=== PATIENT | female | born 1995 | race Caucasian/White ===

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

== ENCOUNTER 2021-02-06 16:48 | Emergency (ER) | payer MEDICAID ==
[~2021-02-06] VITALS: Ht 165.1 cm; Wt 63.6 kg
[~2021-02-06 16:48] MED LIST: MIRT-89 PO
[2021-02-06] MEDS ORDERED: ACETAMINOPHEN 500 MG TABLET PO ONE (19:45)
[2021-02-06] MEDS ORDERED: BACITRACIN 0.9 GM PACKET OINTMENT TP ONE (19:45)
[2021-02-06] MEDS ORDERED: PERTUSS(ACELL),DIPH,TET VAC/PF 0.5 ML SYRINGE IM. ONE (19:45)
[2021-02-06 19:57] VITALS: BP 132/76
== END 2021-02-06 21:52 | disposition home or self-care (01) ==
LOC: EMS 16:48
DX: S01.311A Laceration without foreign body of right ear, initial encounter (principal); S02.2XXA Fracture of nasal bones, initial encounter for closed fracture; F17.210 Nicotine dependence, cigarettes, uncomplicated; F12.90 Cannabis use, unspecified, uncomplicated; Y04.0XXA Assault by unarmed brawl or fight, initial encounter; Y93.89 Activity, other specified; Y92.89 Other specified places as the place of occurrence of the external cause; Y99.8 Other external cause status
CPT/HCPCS: 12011; 70450; 70486; 72125; 90471; 90715; 99285

== ENCOUNTER 2021-02-21 18:19 | Emergency (ER) | payer MEDICAID ==
[~2021-02-21] VITALS: Ht 165.1 cm; Wt 63.6 kg
[2021-02-21 18:20] VITALS: BP 113/72
[2021-02-21] MEDS ORDERED: CEPHALEXIN MONOHYDRATE 500 MG CAPSULE PO ONE (21:15)
== END 2021-02-21 21:40 | disposition home or self-care (01) ==
LOC: EMS 18:21
DX: J32.9 Chronic sinusitis, unspecified (principal); F17.210 Nicotine dependence, cigarettes, uncomplicated; Z79.899 Other long term (current) drug therapy
CPT/HCPCS: 99283

== ENCOUNTER 2022-07-07 22:47 | Inpatient (IN) | payer MEDICAID ==
[~2022-07-07] VITALS: Ht 165.1 cm; Wt 67.0 kg
[2022-07-08 00:16] LABS: MEAN CORPUSCULAR HGB CONC 34.1 G/dL (31.0-37.0)
[2022-07-08 00:27] LABS: APPEARANCE,URINE HAZY (CLEAR); GLUCOSE, URINE (UA) NEGATIVE (NEGATIVE); KETONES,URINE =>150 mg/dL (NEGATIVE); LEUKOCYTE ESTERASE ,URINE MODERATE (NEGATIVE); NITRATE,URINE NEGATIVE (NEGATIVE); OCCULT BLOOD,URINE LARGE (NEGATIVE); PH,URINE 5.5 (5.0-8.0); PROTEIN,URINE 100-200,SEE CONFIRM mg/dL (NEGATIVE); SPECIFIC GRAVITIY, URINE 1.039 (1.003-1.030)
[2022-07-08 00:31] LABS: BILIRUBIN,URINE SMALL (NEGATIVE)
[2022-07-08 00:31] LABS: BASOPHILS % (AUTO) 0.4 % (0.0-2.0); EOSINOPHILS % (AUTO) 0.2 % (1.0-6.0); LYMPHOCYTES # (AUTO) 2.6 K/uL (1.0-4.8); MEAN CORPUSCULAR HEMOGLOBIN 29.6 pg (26.0-34.0); MEAN CORPUSCULAR VOLUME 87 fL (80-100); MONOCYTES # (AUTO) 1.2 K/uL (0.1-1.0); MONOCYTES % (AUTO) 7.8 % (2.0-9.0); NEUTROPHILS # (AUTO) 11.6 K/uL (1.8-7.7); NEUTROPHILS % (AUTO) 74.6 % (40.0-70.0); PLATELET COUNT (AUTO) 365 K/uL (150-450); RED BLOOD CELL COUNT(AUTO) 4.72 MIL/uL (4.00-5.20); RED CELL DISTRIBUTION WIDTH 13.2 % (11.5-14.5)
[2022-07-08 00:32] LABS: ALANINE AMINOTRANSFERASE 26 U/L (12-78); ALBUMIN 5.1 g/dL (3.4-5.0); ALKALINE PHOSPHATASE 110 U/L (46-116); ANION GAP 16 mmol/L (8-16); ASPARTATE AMINOTRANSFERASE 40 U/L (15-37); BILIRUBIN,TOTAL 2.4 mg/dL (0.1-1.0); CALCIUM, TOTAL 9.6 mg/dL (8.8-10.5); CARBON DIOXIDE 22 mmol/L (22-29); CHLORIDE 101 mmol/L (98-107); GLUCOSE,RANDOM 95 mg/dL (70-110); SODIUM SERUM 139 mmol/L (136-145); UREA NITROGEN, BLOOD 18 mg/dL (7-18)
[2022-07-08 00:35] LABS: AMPHET/METH SCREEN,URINE POSITIVE (NEGATIVE); BARBITURATE SCREEN, URINE NEGATIVE (NEGATIVE); BENZODIAZEPINES SCREEN,URINE NEGATIVE (NEGATIVE); CANNABINOID SCREEN,URINE POSITIVE (NEGATIVE); COCAINE SCREEN,URINE POSITIVE (NEGATIVE); METHADONE SCREEN, URINE NEGATIVE (NEGATIVE); OPIATE SCREEN,URINE NEGATIVE (NEGATIVE)
[2022-07-08 00:39] LABS: PHENCYCLIDINE SCREEN,URINE NEGATIVE (NEGATIVE)
[2022-07-08 00:41] LABS: GLOMERULAR FILTR. RATE CALC > 60 mL/min (>60)
[2022-07-08 00:42] LABS: POTASSIUM 2.9 mmol/L (3.5-5.1)
[2022-07-08] MEDS ORDERED: POTASSIUM CHLORIDE 20 MEQ ER TABLET PO ONE (00:45)
[2022-07-08 01:00] LABS: SULFOSALICYLIC ACID,URINE 1+ (Negative)
[2022-07-08] MEDS ORDERED: DiphenhydrAMINE HCL 50 MG/ML VIAL IM ONE (01:00)
[2022-07-08] MEDS ORDERED: LORazepam 2 MG/ML VIAL IM ONE (01:00)
[2022-07-08] MEDS ORDERED: HALOPERIDOL LACTATE 5 MG/ML VIAL IM ONE (01:00)
[2022-07-08 01:01] LABS: BACTERIA,URINE Few /HPF (None Seen); SQUAMOUS EPITHELIAL CELL,UR Few /LPF (None Seen)
[2022-07-08] MEDS ORDERED: OLANZapine 5 MG RAPDIS TABLET PO PRN (03:30)
[2022-07-08] MEDS ORDERED: LORazepam 2 MG TABLET PO PRN (03:30)
[2022-07-08] MEDS ORDERED: ZOLPIDEM TARTRATE 10 MG TABLET PO PRN (03:30)
[2022-07-08 10:43] VITALS: BP 113/65
[2022-07-08] MEDS: NITROFURANTOIN MONOHYD/M-CRYST 100 MG CAPSULE [MACROBID] PO SCH ×2 (10:45→16:53)
[2022-07-08] MEDS ORDERED: ACETAMINOPHEN 325 MG TABLET PO PRN (16:30)
[2022-07-08] MEDS ORDERED: HydrOXYzine PAMOATE 50 MG CAPSULE PO PRN (16:30)
[2022-07-08] MEDS ORDERED: MAG HYDROX/AL HYDROX/SIMETH ES 30 ML SUSPENSION UDCUP PO PRN (16:30)
[2022-07-08] MEDS ORDERED: PROMETHAZINE HCL 25 MG TABLET PO PRN (16:30)
[2022-07-08] MEDS ORDERED: MAGNESIUM HYDROXIDE SUSPENSION 30 ML UDCUP PO PRN (16:30)
[2022-07-08] MEDS ORDERED: TUBERCULIN, PURIFIED PROTEIN DERIVATIVE 5 TU/0.1 ML SYRINGE ID ONE (16:30)
[2022-07-08] MEDS ORDERED: GuaiFENesin/D-METHORPHAN [SUGAR-FREE] 200-20MG/10 ML SYRUP UDCUP PO PRN (16:30)
[2022-07-08] MEDS ORDERED: LOPERAMIDE HCL 2 MG CAPSULE PO PRN (16:30)
[2022-07-08] MEDS: THIAMINE 100 MG TABLET PO SCH (16:54)
[2022-07-08] MEDS: OLANZapine 5 MG RAPDIS TABLET PO SCH (20:43)
[2022-07-08] MEDS: MELATONIN 5 MG TABLET PO SCH (20:44)
[2022-07-09 07:21] LABS: COVID AG,FIA SOURCE NASAL SWAB
[2022-07-09] MEDS: OMEGA-3/DHA/EPA/FISH OIL 1,000 MG CAPSULE PO SCH (08:42)
[2022-07-09] MEDS: THIAMINE 100 MG TABLET PO SCH ×2 (08:42→16:15)
[2022-07-09] MEDS: FOLIC ACID 1 MG TABLET PO SCH (08:42)
[2022-07-09] MEDS: NALTREXONE HCL 50 MG TABLET PO SCH (08:42)
[2022-07-09] MEDS: NITROFURANTOIN MONOHYD/M-CRYST 100 MG CAPSULE [MACROBID] PO SCH ×2 (08:42→16:15)
[2022-07-09] MEDS: MULTIVITAMINS WITH MINERALS, THERAPEUTIC TABLET PO SCH (08:42)
[2022-07-09 08:43] LABS: ANION GAP 12 mmol/L (8-16); CALCIUM, TOTAL 8.9 mg/dL (8.8-10.5); CARBON DIOXIDE 24 mmol/L (22-29); CHLORIDE 106 mmol/L (98-107); CREATININE 0.68 mg/dL (0.60-1.30); GLUCOSE,RANDOM 82 mg/dL (70-110); HEMOGLOBIN A1C 5.4 % (3.8-5.6); POTASSIUM 3.4 mmol/L (3.5-5.1); SODIUM SERUM 142 mmol/L (136-145); UREA NITROGEN, BLOOD 14 mg/dL (7-18)
[2022-07-09 08:45] LABS: GLOMERULAR FILTR. RATE CALC > 60 mL/min (>60)
[2022-07-09 08:49] LABS: ALBUMIN 3.8 g/dL (3.4-5.0); BILIRUBIN,DIRECT 0.3 mg/dL (0.00-0.20); BILIRUBIN,TOTAL 1.3 mg/dL (0.1-1.0); POTASSIUM 3.2 mmol/L (3.5-5.1); TOTAL PROTEIN, SERUM 7.7 g/dL (6.4-8.2)
[2022-07-09] MEDS: FLUoxetine HCL 20 MG CAPSULE PO SCH (08:55)
[2022-07-09 08:57] LABS: CHOL/HDL RATIO 2.1 (3.9-5.7); FREE T4 (FREE THYROXINE) 1.45 ng/dL (0.76-1.46); THYROID STIMULATING HORMONE 0.36 uIU/mL (0.36-3.74)
[2022-07-09] MEDS: OLANZapine 5 MG RAPDIS TABLET PO SCH (20:52)
[2022-07-09] MEDS: MELATONIN 5 MG TABLET PO SCH (20:53)
[2022-07-10] MEDS ORDERED: POTASSIUM CHLORIDE 20 MEQ ER TABLET PO ONE (07:00)
[2022-07-10 08:49] VITALS: BP 117/81
[2022-07-10] MEDS: NITROFURANTOIN MONOHYD/M-CRYST 100 MG CAPSULE [MACROBID] PO SCH ×2 (09:27→16:21)
[2022-07-10] MEDS: THIAMINE 100 MG TABLET PO SCH ×2 (09:28→16:21)
[2022-07-10] MEDS: MULTIVITAMINS WITH MINERALS, THERAPEUTIC TABLET PO SCH (09:28)
[2022-07-10] MEDS: NALTREXONE HCL 50 MG TABLET PO SCH (09:28)
[2022-07-10] MEDS: FOLIC ACID 1 MG TABLET PO SCH (09:28)
[2022-07-10] MEDS: FLUoxetine HCL 20 MG CAPSULE PO SCH (09:28)
[2022-07-10] MEDS: OMEGA-3/DHA/EPA/FISH OIL 1,000 MG CAPSULE PO SCH (09:28)
[2022-07-10] MEDS: OLANZapine 10 MG RAPDIS TABLET PO SCH (20:51)
[2022-07-10] MEDS: MELATONIN 5 MG TABLET PO SCH (20:52)
[2022-07-11] MEDS: NITROFURANTOIN MONOHYD/M-CRYST 100 MG CAPSULE [MACROBID] PO SCH ×2 (09:11→17:23)
[2022-07-11] MEDS: THIAMINE 100 MG TABLET PO SCH ×2 (09:13→17:23)
[2022-07-11] MEDS: MULTIVITAMINS WITH MINERALS, THERAPEUTIC TABLET PO SCH (09:13)
[2022-07-11] MEDS: NALTREXONE HCL 50 MG TABLET PO SCH (09:13)
[2022-07-11] MEDS: OMEGA-3/DHA/EPA/FISH OIL 1,000 MG CAPSULE PO SCH (09:15)
[2022-07-11] MEDS: FLUoxetine HCL 20 MG CAPSULE PO SCH (09:15)
[2022-07-11] MEDS: FOLIC ACID 1 MG TABLET PO SCH (09:16)
[2022-07-11 14:18] LABS: BASOPHILS % (AUTO) 0.4 % (0.0-2.0); EOSINOPHILS % (AUTO) 0.7 % (1.0-6.0); HEMATOCRIT 39.2 % (36-46); HEMOGLOBIN 12.9 g/dL (12.0-16.0); LYMPHOCYTES % (AUTO) 34.2 % (22.0-44.0); MEAN CORPUSCULAR HEMOGLOBIN 29.5 pg (26.0-34.0); MEAN CORPUSCULAR VOLUME 89 fL (80-100); MONOCYTES # (AUTO) 0.4 K/uL (0.1-1.0); MONOCYTES % (AUTO) 6.3 % (2.0-9.0); NEUTROPHILS # (AUTO) 3.3 K/uL (1.8-7.7); NEUTROPHILS % (AUTO) 58.4 % (40.0-70.0); PLATELET COUNT (AUTO) 302 K/uL (150-450); RED BLOOD CELL COUNT(AUTO) 4.39 MIL/uL (4.00-5.20); RED CELL DISTRIBUTION WIDTH 13.4 % (11.5-14.5)
[2022-07-11 14:32] LABS: ANION GAP 8 mmol/L (8-16); CALCIUM, TOTAL 8.6 mg/dL (8.8-10.5); CARBON DIOXIDE 28 mmol/L (22-29); CHLORIDE 104 mmol/L (98-107); CREATININE 0.69 mg/dL (0.60-1.30); GLUCOSE,RANDOM 87 mg/dL (70-110); POTASSIUM 4.1 mmol/L (3.5-5.1); SODIUM SERUM 140 mmol/L (136-145); UREA NITROGEN, BLOOD 11 mg/dL (7-18)
[2022-07-11 14:37] LABS: GLOMERULAR FILTR. RATE CALC > 60 mL/min (>60)
[2022-07-11 16:47] VITALS: BP 108/79
[2022-07-11] MEDS ORDERED: OMEG-135 PO (18:05)
[2022-07-11] MEDS ORDERED: NALT50TA6 PO (18:05)
[2022-07-11] MEDS ORDERED: OLAN10TA26 PO (18:05)
[2022-07-11] MEDS ORDERED: FLUO20CA36 PO (18:05)
[2022-07-11] MEDS ORDERED: MELA5TAB40 PO (18:05)
[2022-07-11] MEDS ORDERED: NITR-75 PO (19:45)
[2022-07-11] MEDS: MELATONIN 5 MG TABLET PO SCH (20:35)
[2022-07-11] MEDS: OLANZapine 10 MG RAPDIS TABLET PO SCH (20:35)
[2022-07-12] MEDS: NITROFURANTOIN MONOHYD/M-CRYST 100 MG CAPSULE [MACROBID] PO SCH (08:41)
[2022-07-12] MEDS: FLUoxetine HCL 20 MG CAPSULE PO SCH (08:41)
[2022-07-12] MEDS: FOLIC ACID 1 MG TABLET PO SCH (08:41)
[2022-07-12] MEDS: THIAMINE 100 MG TABLET PO SCH (08:41)
[2022-07-12] MEDS: MULTIVITAMINS WITH MINERALS, THERAPEUTIC TABLET PO SCH (08:41)
[2022-07-12] MEDS: OMEGA-3/DHA/EPA/FISH OIL 1,000 MG CAPSULE PO SCH (08:42)
[2022-07-12] MEDS: NALTREXONE HCL 50 MG TABLET PO SCH (08:46)
== END 2022-07-12 09:20 | disposition home or self-care (01) | DRG 750 ==
LOC: EMS 22:48 → 3EI 07-08 08:52
PROVIDERS: ADMIT Psychiatry & Neurology Psychiatry; ATTEND Psychiatry & Neurology Psychiatry
DX: F25.9 Schizoaffective disorder, unspecified (principal); E87.6 Hypokalemia; F14.90 Cocaine use, unspecified, uncomplicated; F31.9 Bipolar disorder, unspecified; Z20.822 Contact with and (suspected) exposure to COVID-19; F17.200 Nicotine dependence, unspecified, uncomplicated; F41.9 Anxiety disorder, unspecified; N39.0 Urinary tract infection, site not specified; Z55.9 Problems related to education and literacy, unspecified; Z56.0 Unemployment, unspecified; Z59.00 Homelessness unspecified; Z63.9 Problem related to primary support group, unspecified; Z65.3 Problems related to other legal circumstances; Z59.02 Unsheltered homelessness; Z79.899 Other long term (current) drug therapy
CPT/HCPCS: 80048; 80053; 80061; 80076; 80307; 81001; 81002; 83036; 84132; 84439; 84443; 84703; 85025; 86592; 99285; G0480; J1200; J1630; J2060; Q9967